=== PATIENT | female | born 1975 | race African-American/Black ===

== ENCOUNTER 2016-06-19 11:43 | Emergency (ER) | payer OTHER ==
[~2016-06-19] VITALS: Ht 170.2 cm; Wt 72.6 kg
[~2016-06-19 11:43] MED LIST: IBUPROFEN600 MG ORAL; NKM
[2016-06-19] MEDS ORDERED: Metoclopramide 10mg/10ml Liq ORAL ONE (12:30)
[2016-06-19] MEDS ORDERED: Ketorolac 60mg Inj IM ONE (12:30)
--- NOTE | 2016-06-19 13:10 | Emergency Room Report ---
History of Present Illness General Chief Complaint: Flu Like Symptoms Source: Patient Present Illness HPI 40-year-old female presents to emergency Department complaining of intermittent episodes of palpitations 2 weeks. In addition to nausea and non-bloody vomiting x 1 episode, and slow onset headache with photophobia x2 days. She denies . Patient was seen here in the emergency department a year ago for palpitations and states she never followed up with a manganese breaker. She states she has an appointment scheduled with her primary care doctor for June 28. Patient denies syncope, shortness of breath, chest pain, fevers, chills, ill contacts, or recent URI. She denies recent fall or trauma. She denies previous history of cardiac disease.Denies CP, LOC, AMS, dizziness, Changes in Vision, Sensation, paresthesias, or a sudden severe headache. Allergies: Coded Allergies: No Known Allergies (Unverified , 08/02/12) Patient History Past Medical History: see triage record Past Surgical History: none Pertinent Family History: none Last Menstrual Period: 06/15/16 Now: No : 5 Para: 3 Immunizations: UTD Reviewed Nursing Documentation: PMH: Agreed, PSxH: Agreed Nursing Documentation-PMH Past Medical History: No History, Except For History Of Psychiatric Problem: Yes - anxiety, depression Review of Systems All Other Systems: negative except mentioned in HPI Physical Exam Vital Signs Date Time Temp Pulse Resp B/P Pulse Ox O2 Delivery O2 Flow Rate FiO2 06/19/16 11:50 98.4 83 18 114/82 100 Room Air Sp02 EP Interpretation: reviewed, normal General Appearance: no apparent distress, alert, GCS 15, non-toxic Head: normocephalic, atraumatic Eyes: bilateral eye PERRL, bilateral eye normal inspection ENT: hearing grossly normal, normal pharynx, no angioedema, normal voice Neck: full range of motion, supple/symm/no masses Respiratory: chest non-tender, lungs clear, normal breath sounds, speaking full sentences Cardiovascular #1: regular rate, rhythm, no edema Cardiovascular #2: 2+ radial (R), 2+ radial (L) Gastrointestinal: normal bowel sounds, non tender, soft, no guarding, no rebound Rectal: deferred Genitourinary: normal inspection, no CVA tenderness Musculoskeletal: back normal, gait/station normal, normal range of motion, non- tender Neurologic: alert, oriented x3, responsive, motor strength/tone normal, sensory intact, cerebellar normal, normal gait, speech normal, no pronator, other - negative hoffmans Psychiatric: judgement/insight normal, memory normal, mood/affect normal, no suicidal/homicidal ideation Skin: normal color, no rash, warm/dry, well hydrated Lymphatic: no adenopathy Medical Decision Making PA Attestation Dr. Francisco is my supervising Physician whom patient management has been discussed with. Diagnostic Impression: Primary Impression: Palpitations Additional Impression: Head ache Qualified Codes: R51 - Headache ER Course PT presents to the emergency department complaining of intermittent episodes of palpitations x 3 weeks, in addition to Throbbing GREGORIO x 2 days with photophobia, N/V, and hyperacusis. pt. states she has not followed up with manganese breaker from ED visit last year for palpitations, and her appt. with pcp is not until june 28. Ddx considered but are not limited to [place], arrhythmia, hypokalemia, anxiety reaction, cluster GREGORIO, migraine GREGORIO Vital signs: are WNL, pt. is afebrile H&PE are most consistent with migraine type GREGORIO, and anxiety reaction., pt. does not have focal neurological deficit and acute intracranial process is not suspected at this time. pt symptoms consistent with migrainous GREGORIO with aura. ORDERS: - EK BPM Sinus bradycardia- asymptomatic , no acute ST changes interpreted by Dr. Francisco - CMP: unremarkable no significant electrolyte abnormality, good renal function -TSH:WNL -CBC: no evidence of anemia -UA: unremarkable -UDS: + for THC ED INTERVENTIONS: -10mg Reglan PO -40mg Toradol IM -cafeteria worker consult was placed as pt. requested due to poor housing conditions. d/w pt. proper follow up with manganese breaker , and provided list of free/reduced cost health clinics. DISCHARGE: At this time pt. is stable for d/c to home. Will provide printed patient care instructions, and any necessary prescriptions. Care plan and follow up instructions have been discussed with the patient prior to discharge. Labs Test 06/19/16 12:55 White Blood Count 5.7 K/UL (4.8-10.8) Red Blood Count 4.64 M/UL (4.20-5.40) Hemoglobin 14.4 G/DL (12.0-16.0) Hematocrit 43.9 % (37.0-47.0) Mean Corpuscular Volume 95 FL (80-99) Mean Corpuscular Hemoglobin 31.1 PG (27.0-31.0) Mean Corpuscular Hemoglobin Concent 32.9 G/DL (32.0-36.0) Red Cell Distribution Width 12.5 % (11.6-14.8) Platelet Count 218 K/UL (150-450) Mean Platelet Volume 9.4 FL (6.5-10.1) Neutrophils (%) (Auto) 52.0 % (45.0-75.0) Lymphocytes (%) (Auto) 40.5 % (20.0-45.0) Monocytes (%) (Auto) 6.0 % (1.0-10.0) Eosinophils (%) (Auto) 0.5 % (0.0-3.0) Basophils (%) (Auto) 1.0 % (0.0-2.0) Urine Color Yellow Urine Appearance Clear Urine pH 5 (4.5-8.0) Urine Specific [place] 1.020 (1.005-1.035) Urine Protein Negative (NEGATIVE) Urine Glucose (UA) Negative (NEGATIVE) Urine Ketones 2+ (NEGATIVE) Urine Occult Blood 3+ (NEGATIVE) Urine Nitrite Negative (NEGATIVE) Urine Bilirubin Negative (NEGATIVE) Urine Urobilinogen Normal MG/DL (0.0-1.0) Urine Leukocyte Esterase Negative (NEGATIVE) Urine RBC 2-4 /HPF (0 - 2) Urine WBC 0-2 /HPF (0 - 2) Urine Squamous Epithelial Cells Few /LPF (NONE/OCC) Urine Bacteria Few /HPF (NONE) Urine Mucus Few /LPF (NONE/OCC) Urine HCG, Qualitative Negative Sodium Level 139 mEQ/L (135-145) Potassium Level 3.8 mEQ/L (3.4-4.9) Chloride Level 100 mEQ/L (98-107) Carbon Dioxide Level 20 mEQ/L (20-30) Anion Gap 19 (5-15) Blood Urea Nitrogen 8 mg/dL (7-23) Creatinine 0.9 mg/dL (0.5-0.9) Estimat Glomerular Filtration Rate > 60 mL/min (>60) Glucose Level 82 mg/dL (74-106) Calcium Level 9.3 mg/dL (8.6-10.2) Total Bilirubin 0.3 mg/dL (0.0-1.2) Aspartate Amino Transf (AST/SGOT) 18 U/L (5-40) Alanine Aminotransferase (ALT/SGPT) 14 U/L (3-33) Alkaline Phosphatase 67 U/L (35-104) Total Protein 7.3 g/dL (6.6-8.7) Albumin 4.3 g/dL (3.5-5.2) Globulin 3.0 g/dL Albumin/Globulin Ratio 1.4 (1.0-2.7) Thyroid Stimulating Hormone (TSH) 1.920 uIU/mL (0.300-4.500) Urine Opiates Screen Negative (NEGATIVE) Urine Barbiturates Screen Negative (NEGATIVE) Phencyclidine (PCP) Screen Negative (NEGATIVE) Urine Amphetamines Screen Negative (NEGATIVE) Urine Benzodiazepines Screen Negative (NEGATIVE) Urine Cocaine Screen Negative (NEGATIVE) Urine Marijuana (THC) Screen Positive (NEGATIVE) EKG Diagnostic Results EP Interpretation: interpreted by Dr. Francisco Rate: bradycardiac - 53BPM asymptomatic Rhythm: NSR ST Segments: no acute changes ASA given to the pt in ED: No PA Scribe Text interpreted by Dr. Francisco. Last Vital Signs Date Time Temp Pulse Resp B/P Pulse Ox O2 Delivery O2 Flow Rate FiO2 06/19/16 11:58 83 18 Room Air 06/19/16 11:50 98.4 114/82 100 Disposition: HOME, SELF-CARE Condition: Stable Scripts Metoclopramide Hcl* (REGLAN*) 10 Mg Tablet 10 MG ORAL THREE TIMES A DAY, #15 TAB Prov: Lynne Quintero P.A. 06/19/16 Acetaminophen* (TYLENOL EXTRA STRENGTH*) 500 Mg Tablet 500 MG ORAL Q6H Y for For Headache, #30 TAB 0 Refills Prov: Lynne Quintero P.A. 06/19/16 Buspirone Hcl* (BUSPAR*) 10 Mg Tablet 10 MG ORAL BID, #10 TAB 0 Refills Prov: Lynne Quintero P.A. 06/19/16 Referrals: NON PHYSICIAN (PCP) Patient Instructions: Generalized Anxiety Disorder, Migraine Headache, Easy-to- Read, Palpitations, [id number] Additional Instructions: Take medications as directed. Follow up with PCP in 3-5 days Recommend referral with Neurologist for evaluation of Headaches. Recommend referral to a manganese breaker. Return sooner to ED if new symptoms occur, or current symptoms become worse. - Please note that this Emergency Department Report was dictated using [employer] assistant technology software, occasionally this can lead to erroneous entry secondary to interpretation by the dictation equipment. Lynne Quintero Jun 19, 2016 13:10
[2016-06-19] MEDS ORDERED: LORazepam 0.5mg tab ORAL ONE (14:00)
[2016-06-19 14:46] LABS: APPEARANCE,URINE CLEAR; KETONES,URINE 2+ (NEGATIVE); LEUKOCYTE ESTERASE ,URINE NEGATIVE (NEGATIVE); NITRITE,URINE NEGATIVE (NEGATIVE); PH,URINE 5 (4.5-8.0); PROTEIN,URINE NEGATIVE (NEGATIVE); UROBILINOGEN,URINE NORMAL MG/DL (0.0-1.0)
[2016-06-19 14:49] LABS: EOSINOPHILS % (AUTO) 0.5 % (0.0-3.0); LYMPHOCYTES % (AUTO) 40.5 % (20.0-45.0); MEAN CORPUSCULAR HEMOGLOBIN 31.1 PG (27.0-31.0); MEAN CORPUSCULAR HGB CONC 32.9 G/DL (32.0-36.0); MEAN CORPUSCULAR VOLUME 95 FL (80-99); MEAN PLATELET VOLUME 9.4 FL (6.5-10.1); PLATELET COUNT 218 K/UL (150-450); RED BLOOD COUNT 4.64 M/UL (4.20-5.40); RED CELL DISTRIBUTION WIDTH 12.5 % (11.6-14.8); WHITE BLOOD COUNT 5.7 K/UL (4.8-10.8)
[2016-06-19 14:57] LABS: BACTERIA,URINE FEW /HPF; MUCUS,URINE FEW /LPF (NONE/OCC); SQUAMOUS EPITHELIAL CELL,UR FEW /LPF (NONE/OCC); WBC,URINE 0-2 /HPF (0 - 2)
[2016-06-19 15:01] LABS: ALANINE AMINOTRANSFERASE 14 U/L (3-33); ALBUMIN/GLOBULIN RATIO 1.4 (1.0-2.7); ANION GAP 19 (5-15); ASPARTATE AMINO TRANSFERASE 18 U/L (5-40); CALCIUM 9.3 mg/dL (8.6-10.2); CARBON DIOXIDE 20 mEQ/L (20-30); CHLORIDE 100 mEQ/L (98-107); CREATININE 0.9 mg/dL (0.5-0.9); GLOMERULAR FILTRATION RATE > 60 mL/min (>60); HEMOLYSIS 12; POTASSIUM 3.8 mEQ/L (3.4-4.9); SODIUM 139 mEQ/L (135-145); TOTAL PROTEIN 7.3 g/dL (6.6-8.7)
[2016-06-19] MEDS ORDERED: BUSPAR10 MG ORAL (15:20)
[2016-06-19] MEDS ORDERED: REGLAN10 MG ORAL (15:20)
[2016-06-19] MEDS ORDERED: TYLENOL EXTRA500 MG ORAL (15:20)
[2016-06-19 15:35] VITALS: BP 126/81
--- NOTE | 2016-06-22 15:20 | Cardiology Report ---
APPROVED REPORT EKG Measurement Heart [id number] Sinus bradycardia Incomplete right bundle branch block Borderline ECG
== END 2016-06-19 15:40 | disposition home or self-care (01) ==
LOC: EMR 12:13
DX: R00.2 Palpitations (principal); R51 Headache; R11.2 Nausea with vomiting, unspecified; H53.149 Visual discomfort, unspecified; Z86.59 Personal history of other mental and behavioral disorders
CPT/HCPCS: 36415; 80053; 80300; 81003; 81025; 84443; 85025; 93005; 96372

== ENCOUNTER 2016-07-11 18:25 | Emergency (ER) | payer OTHER ==
[~2016-07-11] VITALS: Ht 170.2 cm; Wt 70.3 kg
[~2016-07-11 18:25] MED LIST changes: +BUSPAR10 MG ORAL; +REGLAN10 MG ORAL; +TYLENOL EXTRA500 MG ORAL
[2016-07-11 18:39] VITALS: BP 110/83
[2016-07-11] MEDS ORDERED: ALPRAZolam 0.5mg tab ORAL ONE (21:00)
[2016-07-11] MEDS ORDERED: ALPRAZOLAM0.25 MG ORAL (21:02)
[2016-07-11 21:50] VITALS: BP 105/72
[2016-07-11 22:40] VITALS: BP 110/83
--- NOTE | 2016-07-12 23:13 | Emergency Room Report ---
History of Present Illness General Chief Complaint: Palpitations Source: Patient Present Illness HPI 40 YO F with palpitations, insomnia, bilateral upper/lower extremity tingling for "weeks." Patient under a "lot of stress" with living situation. Was seen in ED last month May for similar presentation. Saw PMD earlier this week who prescribed Mirtazepine and Trazodone PRN at night because my doctor "thinks that I am sleep deprived and possibly depressed." Patient has not taken any of the meds because she is worried about side effects. Currently asymptomatic in the ED. Denies chest pain, SOB, abd pain, urinary complaints. Denies SI, HI, AVH. Allergies: Coded Allergies: No Known Allergies (Unverified , 08/02/12) Patient History Past Medical History: none Past Surgical History: none Pertinent Family History: none Social History: Denies: alcohol use, drug use, smoking Last Menstrual Period: 06/15/16 Now: No Immunizations: UTD Reviewed Nursing Documentation: PMH: Agreed, PSxH: Agreed Nursing Documentation-PMH Past Medical History: No Stated History Review of Systems All Other Systems: negative except mentioned in HPI Physical Exam Vital Signs Date Time Temp Pulse Resp B/P Pulse Ox O2 Delivery O2 Flow Rate FiO2 07/11/16 18:29 98.1 91 15 109/76 97 Room Air Sp02 EP Interpretation: reviewed, normal General Appearance: normal inspection, well appearing, no apparent distress, alert, GCS 15, non-toxic Head: normocephalic, atraumatic Eyes: bilateral eye EOMI, bilateral eye PERRL ENT: normal ENT inspection, hearing grossly normal, normal voice Neck: normal inspection, full range of motion, supple, no bony tend Respiratory: normal inspection, lungs clear, normal breath sounds, no respiratory distress, no retraction, no wheezing Cardiovascular #1: regular rate, rhythm, no edema Gastrointestinal: normal inspection, normal bowel sounds, non tender, soft, no guarding, no hernia Genitourinary: no CVA tenderness Musculoskeletal: normal inspection, back normal, normal range of motion, Westley' s Sign negative Neurologic: normal inspection, alert, responsive, speech normal Psychiatric: normal inspection, judgement/insight normal, memory normal, mood/ affect normal, no suicidal/homicidal ideation, depressed affect, anxious Skin: normal inspection, normal color, no rash Lymphatic: normal inspection Medical Decision Making Diagnostic Impression: Primary Impression: Generalized anxiety disorder ER Course Symptoms for weeks. Likely all related to generalized anxiety. Unlikely ACS, PE or other bacterial or surgical emergency ECG no ischemia. No arrythmia Recommended she follow up PMD recommendations with Mirtaz and PRN trazodone Will also Rx Xanax as neede anxiety EKG Diagnostic Results Rate: normal Rhythm: NSR ST Segments: no acute changes ASA given to the pt in ED: No Last Vital Signs Date Time Temp Pulse Resp B/P Pulse Ox O2 Delivery O2 Flow Rate FiO2 07/11/16 21:50 80 17 105/72 100 Room Air 07/11/16 18:29 98.1 Status: improved Disposition: HOME, SELF-CARE Condition: Improved Scripts Alprazolam* (XANAX*) 0.25 Mg Tablet 0.25 MG ORAL BID Y for For Anxiety for 7 Days, #14 TAB Prov: NELLY WALTER M.D. 07/11/16 Patient Instructions: Generalized Anxiety Disorder Additional Instructions: - if you are still anxious at home tonight with trouble sleeping, take the Trazodone you were prescribed - Start Mirtazapine tomorrow morning - may take a few days to kick in. - Take trazodone as needed for sleep at night - You can also take Xanax during the day as needed but take care not to take too much as you can get addicted to it. NELLY WALTER M.D. Jul 12, 2016 23:13
--- NOTE | 2016-07-13 15:12 | Cardiology Report ---
APPROVED REPORT EKG Measurement Heart [id number] Normal sinus rhythm Normal ECG
== END 2016-07-11 21:55 | disposition home or self-care (01) ==
LOC: EMR 18:40
DX: F41.1 Generalized anxiety disorder (principal)
CPT/HCPCS: 93005; 99284